=== PATIENT | female | born 1975 | race African-American/Black ===

== ENCOUNTER 2021-01-25 23:15 | Emergency (ER) | payer OTHER ==
[~2021-01-25] VITALS: Ht 162.6 cm; Wt 97.7 kg
[~2021-01-25 23:15] MED LIST: NO HOME MEDICATIONS; PRENATAL VITAMI1 TA5 PO
[2021-01-26] MEDS ORDERED: FLEXERIL 1010 MG/TAB PO (00:18)
[2021-01-26 01:30] VITALS: BP 141/100; PULSE 94; TEMP 98.7
== END 2021-01-26 01:30 | disposition home or self-care (01) ==
LOC: COL.ER 23:15
DX: S16.1XXA Strain of muscle, fascia and tendon at neck level, initial encounter (principal); S20.211A Contusion of right front wall of thorax, initial encounter; V89.2XXA Person injured in unspecified motor-vehicle accident, traffic, initial encounter

== ENCOUNTER → 2022-03-23 | Outpatient (CLI) | payer BC ==
[~2022-03-23] MED LIST changes: +FLEXERIL 1010 MG/TAB PO
== END ==
LOC: MC.RAD 12:56
DX: Z00.00 Encounter for general adult medical examination without abnormal findings (principal); N60.01 Solitary cyst of right breast; N64.89 Other specified disorders of breast

== ENCOUNTER → 2022-04-07 | Outpatient (CLI) | payer BC | LOC: MC.RAD 09:08 | DX: N63.10 Unspecified lump in the right breast, unspecified quadrant (principal) | CPT/HCPCS: 30634; 30636 ==